=== PATIENT | male | born 1970 | race Native Hawaiian/Other Pacific Islander ===

== ENCOUNTER 2018-10-29 08:44 | Emergency (ER) | payer OTHER ==
[~2018-10-29] VITALS: Ht 170.2 cm; Wt 62.6 kg
[2018-10-29 09:00] VITALS: BP 154/100; TEMP 100
[2018-10-29 09:46] LABS: PLATELET COUNT 251 K/uL (142-355)
[2018-10-29 10:04] LABS: POTASSIUM 3.6 mmol/L (3.6-5.2)
== END 2018-10-29 15:27 | disposition home or self-care (01) ==
LOC: ED 08:44
PROVIDERS: Emergency Medicine
DX: E86.0 Dehydration (principal); R50.9 Fever, unspecified; B97.89 Other viral agents as the cause of diseases classified elsewhere
CPT/HCPCS: 51702; 80053; 81000; 83605; 85027; 87502; 87651; 96360; 96361; 99284

== ENCOUNTER 2019-10-23 13:14 | Emergency (ER) | payer OTHER ==
[~2019-10-23] VITALS: Ht 167.6 cm; Wt 58.1 kg
[~2019-10-23 13:14] MED LIST: AMLODIPINE BESYLATE PO; BENZ1TAB43 PO; BUSP5TAB2 PO; CITA20TA2 PO; CLON0.5T36 PO; DIVA250T PO; DIVA250T2 PO; FOLI1TAB26 PO; HYDR50CA21 PO; LEVO0.0723 PO; OLAN10INJ IM; OLAN2.5T2 PO; PANTOPRAZOLE 40MG TA PO; RISP0.5T2 PO; SERTRALINE HYDR50 MG PO; TRAZ50TA36 PO
[2019-10-23 13:56] VITALS: BP 158/112; TEMP 100.3
[2019-10-23 14:23] LABS: PLATELET COUNT 135 K/uL (142-355)
[2019-10-23 14:25] LABS: POTASSIUM 4.2 mmol/L (3.6-5.2)
[2019-10-24] MEDS ORDERED: LEVO0.08 PO (19:21)
[2019-10-24] MEDS ORDERED: AMLODIPINE BESYLATE PO (19:21)
[2019-10-24] MEDS ORDERED: CELEXA20 MG PO (19:22)
[2019-10-24] MEDS ORDERED: DOCU100C10 PO (19:25)
[2019-10-24] MEDS ORDERED: KP FOLIC ACID1 MG PO (19:30)
[2019-10-24] MEDS ORDERED: PANTOPRAZOLE 40MG TA PO (19:31)
[2019-10-24] MEDS ORDERED: BENZ1TAB43 PO (19:32)
[2019-10-24] MEDS ORDERED: VALPROIC A250 MG/5 M PO (19:33)
[2019-10-24] MEDS ORDERED: MIRTAZAPINE7.5 MG PO (19:34)
[2019-10-24] MEDS ORDERED: ARTIFICIAL TEARS1 % OPTH (19:35)
[2019-10-24] MEDS ORDERED: MELATONIN5 M4 PO (19:37)
[2019-10-24] MEDS ORDERED: OLAN2.5T2 PO (19:38)
== END 2019-10-23 15:10 | disposition other institution (70) ==
LOC: ED 13:14
PROVIDERS: Family Medicine
DX: U07.1 COVID-19 (principal); R46.89 Other symptoms and signs involving appearance and behavior; F25.9 Schizoaffective disorder, unspecified; Z04.6 Encounter for general psychiatric examination, requested by authority
CPT/HCPCS: 80053; 85027; 87635; 93005; 99283; U00003

== ENCOUNTER 2019-11-08 13:42 | Inpatient (IN) | payer OTHER ==
[~2019-11-08] VITALS: Ht 167.6 cm; Wt 51.8 kg
[2019-11-08] VITALS (17 sets, daily range): BP systolic 70–214; BP diastolic 35–107; TEMP 98.4–100.9; Ht 167.6 cm; Wt 51.8 kg
[~2019-11-08 13:42] MED LIST changes: +ARTIFICIAL TEARS1 % OPTH; +CELEXA20 MG PO; +DOCU100C10 PO; +KP FOLIC ACID1 MG PO; +LEVO0.08 PO; +MELATONIN5 M4 PO; +MIRTAZAPINE7.5 MG PO; +VALPROIC A250 MG/5 M PO
[2019-11-08 15:17] LABS: PLATELET COUNT 187 K/uL (142-355)
[2019-11-08 15:20] LABS: POTASSIUM 3.1 mmol/L (3.6-5.2); SODIUM 143 mmol/L (136-145)
[2019-11-08 15:30] LABS: PARTIAL THROMBOPLASTIN TIME 29.9 SECONDS (24.5-33.6)
[2019-11-08] MEDS ORDERED: IPRAAER INH ×2 (16:15)
[2019-11-08] MEDS ORDERED: CLON0.2D TOP (16:15)
[2019-11-08] MEDS ORDERED: OXCARBAZEPIN300 MG PO (16:16)
[2019-11-08] MEDS ORDERED: OLAN2.5T2 PO (16:16)
[2019-11-08] MEDS ORDERED: LORA2INJ21 IM (16:16)
[2019-11-08] MEDS ORDERED: VALPROIC ACID10 ML PO (16:16)
[2019-11-09] VITALS (26 sets, daily range): BP systolic 78–185; BP diastolic 53–109; TEMP 97–100
[2019-11-09 06:23] LABS: POTASSIUM 3.7 mmol/L (3.6-5.2)
[2019-11-09 06:41] LABS: PLATELET COUNT 185 K/uL (142-355)
[2019-11-10] VITALS (24 sets, daily range): BP systolic 90–197; BP diastolic 43–113; TEMP 97.6–99.3
[2019-11-10 06:27] LABS: PLATELET COUNT 234 K/uL (142-355)
[2019-11-10 06:48] LABS: POTASSIUM 3.2 mmol/L (3.6-5.2)
[2019-11-11] VITALS (28 sets, daily range): BP systolic 80–198; BP diastolic 37–118; TEMP 97.8–99.9
[2019-11-11 09:03] LABS: POTASSIUM 3.8 mmol/L (3.6-5.2)
[2019-11-11 09:53] LABS: PLATELET COUNT 226 K/uL (142-355)
[2019-11-12] VITALS (20 sets, daily range): BP systolic 96–1140; BP diastolic 43–91; TEMP 97.5–99.1
[2019-11-12 05:08] LABS: POTASSIUM 3.5 mmol/L (3.6-5.2)
[2019-11-12 05:47] LABS: PLATELET COUNT 241 K/uL (142-355)
[2019-11-13] VITALS (23 sets, daily range): BP systolic 113–1441; BP diastolic 67–136; TEMP 97.3–100.3
[2019-11-13 05:24] LABS: PLATELET COUNT 108 K/uL (142-355)
[2019-11-14] VITALS (24 sets, daily range): BP systolic 112–215; BP diastolic 71–127; TEMP 97.7–10030
[2019-11-14 06:17] LABS: PLATELET COUNT 152 K/uL (142-355)
[2019-11-15] VITALS (24 sets, daily range): BP systolic 103–196; BP diastolic 57–113; TEMP 97.9–99.1
[2019-11-15 05:31] LABS: PLATELET COUNT 166 K/uL (142-355)
[2019-11-15 05:39] LABS: POTASSIUM 4.2 mmol/L (3.6-5.2)
[2019-11-16] VITALS (23 sets, daily range): BP systolic 106–217; BP diastolic 58–117; TEMP 98.4–99.9
[2019-11-16 05:48] LABS: POTASSIUM 4.3 mmol/L (3.6-5.2)
[2019-11-16 06:09] LABS: PLATELET COUNT 185 K/uL (142-355)
[2019-11-17] VITALS (25 sets, daily range): BP systolic 104–187; BP diastolic 60–121; TEMP 97.9–99.8
[2019-11-17 08:20] LABS: PLATELET COUNT 241 K/uL (142-355)
[2019-11-18] VITALS (22 sets, daily range): BP systolic 110–194; BP diastolic 67–113; TEMP 98.4–99.3
[2019-11-19] VITALS (7 sets, daily range): BP systolic 112–189; BP diastolic 78–109; TEMP 97.8–98.9
[2019-11-19] MEDS ORDERED: CEFD300C2 PO (11:27)
== END 2019-11-19 09:22 | DRG 177 ==
LOC: ED 13:42 → MED/SURG 14:30 → ICU 21:38
PROVIDERS: Hospitalist; Internal Medicine; Internal Medicine Endocrinology, Diabetes & Metabolism; ADMIT Nurse Practitioner Women's Health
DX: U07.1 COVID-19 (principal); J96.01 Acute respiratory failure with hypoxia; J18.8 Other pneumonia, unspecified organism; G92 Toxic encephalopathy; R65.21 Severe sepsis with septic shock; A41.51 Sepsis due to Escherichia coli [E. coli]; E87.2 Acidosis; E87.6 Hypokalemia; I10 Essential (primary) hypertension; K21.9 Gastro-esophageal reflux disease without esophagitis; F03.90 Unspecified dementia, unspecified severity, without behavioral disturbance, psychotic disturbance, mood disturbance, and anxiety; I95.89 Other hypotension; R00.1 Bradycardia, unspecified
CPT/HCPCS: 36415; 36416; 36600; 51702; 80048; 80053; 80164; 80202; 82550; 82553; 82805; 83605; 83880; 84484; 85007; 85027; 85610; 85730; 87040; 87077; 87186; 87205; 87502; 87651; 90658; 90732; 93005; 94664; 94760; 96360; 96365; 96366; 96375; 99285; J0132; J0360; J1100; J1650; J1815; J1956; J2060; J2185; J2543; J3260; J3370; J3480; J3490

== ENCOUNTER 2019-12-07 13:28 | Inpatient (IN) | payer OTHER ==
[~2019-12-07] VITALS: Ht 167.6 cm; Wt 41.4 kg
[~2019-12-07 13:28] MED LIST changes: +CEFD300C2 PO; +CLON0.2D TOP; +ESCI10TA PO; +GABA100C2 PO; +GABA300C2 PO; +IPRAAER INH; +LORA2INJ21 IM; +OXCARBAZEPIN300 MG PO; +VALPROIC ACID10 ML PO
--- NOTE | 2019-12-07 13:47 | NUR ---
PATIENT BROUGHT VIA STRETCHER FROM [facility]. PATIENT MINIMALLY RESPONSIVE ON 3 LPM VIA NC WITH SPO2 AT 62%. PATIENT PLACED ON VENTI MASK 50% WITH 02 SATS INCREASING TO 91-92%. PATIENT HAS A 22G TO THE LEFT AC INFUSING NS AT 100 ML AND VANCOMYCIN STARTED AT THE U.
[2019-12-07 20:00] VITALS: BP 113/63; TEMP 97.9
[2019-12-07 20:35] VITALS: BP 93/58; TEMP 98.1; Ht 167.6 cm; Wt 41.4 kg
[2019-12-08 00:21] VITALS: BP 128/88; TEMP 98.9
[2019-12-08 04:16] VITALS: BP 123/73; TEMP 98.1
[2019-12-08 05:45] LABS: POTASSIUM 3.6 mmol/L (3.6-5.2)
[2019-12-08 06:46] LABS: PLATELET COUNT 219 K/uL (142-355)
[2019-12-08 08:00] VITALS: BP 109/71; TEMP 97.7
[2019-12-08 12:00] VITALS: BP 107/66
[2019-12-08 16:00] VITALS: BP 97/54; TEMP 97.7
[2019-12-08 20:00] VITALS: BP 102/57; TEMP 98.2
[2019-12-09 00:05] VITALS: BP 125/65; TEMP 98
[2019-12-09 04:00] VITALS: BP 115/64; TEMP 97.8
[2019-12-09 06:32] LABS: PLATELET COUNT 223 K/uL (142-355)
[2019-12-09 06:47] LABS: POTASSIUM 3.5 mmol/L (3.6-5.2)
[2019-12-09 08:00] VITALS: BP 132/70; TEMP 96.5
[2019-12-09 12:00] VITALS: BP 154/83; TEMP 96.8
--- NOTE | 2019-12-09 13:16 | NUR ---
DURING SKIN ASSESSMENT I OBSERVED THE FOLLOWING OPEN AREAS. RT LATERAL HEEL 0.3CM X 0.3CM X UTD. RT 2ND TOE 0.2CM X 0.2CM X UTD. LEFT ELBOW ABRASION 0.7CM X 0.5CM X 0.2CM. SCABS NOTED TO LEFT KNEE.
[2019-12-09 16:00] VITALS: BP 148/94; TEMP 97.3
--- NOTE | 2019-12-09 19:53 | NUR ---
1929 GAMALIEL BARNES RN FORM [facility] CAME TO CONSULT ON REFERAL PER DR HOLDER REQUEST. INFORMED THAT [facility] WOULD PICK HIM UP. DR LOGAN INFORMED OF PT MEETING [facility]A TO GO TO [facility]. PT WILL BE DISCHARGED IN AM . GAMALIEL BARNES RN WILL CALL [facility] IN [facility] IN AM FOR TRASNPORT TO BE SET UP IN AM
[2019-12-09 20:00] VITALS: BP 170/66; TEMP 97.1
[2019-12-10] VITALS: BP 146/82; TEMP 98.1
[2019-12-10 04:00] VITALS: BP 122/68; TEMP 98.5
[2019-12-10 08:00] VITALS: BP 150/69; TEMP 99.5
[2019-12-10 12:00] VITALS: BP 143/70; TEMP 99.3
--- NOTE | 2019-12-10 12:40 | NUR ---
PT [facility]OTE[facility] NOTIFIED FOR CONSENT TO TRANSPORT BACK TO [facility]. VERBAL CONSENT GIVEN. [facility] TRANSPORT PT VIA STRETCHER. NO ACUTE DISTRESS NOTED
== END 2019-12-10 12:43 | DRG 871 ==
LOC: MED/SURG 13:28
PROVIDERS: Internal Medicine; ADMIT Psychiatry & Neurology Psychiatry
DX: A41.89 Other specified sepsis (principal); R65.21 Severe sepsis with septic shock; J18.8 Other pneumonia, unspecified organism; N17.8 Other acute kidney failure; E87.0 Hyperosmolality and hypernatremia; E46 Unspecified protein-calorie malnutrition; E87.8 Other disorders of electrolyte and fluid balance, not elsewhere classified; R91.8 Other nonspecific abnormal finding of lung field; E03.8 Other specified hypothyroidism; K21.9 Gastro-esophageal reflux disease without esophagitis; Z66 Do not resuscitate; R62.7 Adult failure to thrive
CPT/HCPCS: 36415; 80053; 80202; 85027; 94760; J1650; J2543; J3370; J3490